=== PATIENT | male | born 1990 | race Caucasian/White ===

== ENCOUNTER 2018-09-03 17:54 | Emergency (ER) | payer BC ==
[~2018-09-03] VITALS: Ht 175.3 cm; Wt 70.3 kg
[~2018-09-03 17:54] MED LIST: LIORESAL 10 MG10 MG PO; NAPROSYN375 MG PO; NOHOMEMEDICATIONS; NORCO 5-325 TA1 EACH PO; SUBOXONE 2 MG-1 EAC1 SL; TRAMADOL 50 MG50 MG PO
[2018-09-03] MEDS ORDERED: QUETIAPINE FUM100 MG PO (18:12)
[2018-09-03] MEDS ORDERED: CLONIDINE0.1 PO (19:05)
[2018-09-03 19:24] VITALS: BP 144/99
[2018-09-03] MEDS ORDERED: ATIVAN1 MG PO (19:42)
== END 2018-09-03 19:25 | disposition home or self-care (01) ==
LOC: M.ERS 17:54
DX: F11.23 Opioid dependence with withdrawal (principal); Z76.0 Encounter for issue of repeat prescription; F17.210 Nicotine dependence, cigarettes, uncomplicated; Z88.5 Allergy status to narcotic agent; Z90.49 Acquired absence of other specified parts of digestive tract; Z98.890 Other specified postprocedural states